=== PATIENT | female | born 1995 | race Caucasian/White ===

== ENCOUNTER 2018-04-21 02:41 | Emergency (ER) | payer OTHER ==
[~2018-04-21] VITALS: Ht 170.2 cm; Wt 90.7 kg
[~2018-04-21 02:41] MED LIST: ZOFRAN ODT4 MG PO
[2018-04-21] MEDS ORDERED: NOHOMEMEDICATIONS (02:51)
[2018-04-21 03:15] VITALS: BP 121/77
[2018-04-22] MEDS ORDERED: BACTRIM DS TAB1 EACH PO (09:44)
[2018-04-22] MEDS ORDERED: KEFLEX500 M1 PO (09:44)
[2018-04-22] MEDS ORDERED: NORCO 5-325 TA1 EACH PO (09:44)
== END 2018-04-21 03:17 | disposition home or self-care (01) ==
LOC: M.ERS 02:41
DX: R22.0 Localized swelling, mass and lump, head (principal); Z98.890 Other specified postprocedural states

== ENCOUNTER 2018-04-22 09:10 | Emergency (ER) | payer OTHER ==
[~2018-04-22] VITALS: Ht 170.2 cm; Wt 90.7 kg
[~2018-04-22 09:10] MED LIST changes: +NOHOMEMEDICATIONS
[2018-04-22] MEDS ORDERED: BACTRIM DS TAB1 EACH PO (09:44)
[2018-04-22] MEDS ORDERED: KEFLEX500 M1 PO (09:44)
[2018-04-22] MEDS ORDERED: NORCO 5-325 TA1 EACH PO (09:44)
[2018-04-22 10:05] VITALS: BP 136/88
== END 2018-04-22 10:06 | disposition home or self-care (01) ==
LOC: M.ERS 09:10
DX: K13.0 Diseases of lips (principal)

== ENCOUNTER 2020-09-09 21:35 | Emergency (ER) | payer OTHER ==
[~2020-09-09] VITALS: Ht 170.2 cm; Wt 81.7 kg
[~2020-09-09 21:35] MED LIST changes: +BACTRIM DS TAB1 EACH PO; +KEFLEX500 M1 PO; +NORCO 5-325 TA1 EACH PO
[2020-09-09 22:01] LABS: URINE BILIRUBIN NEGATIVE (Negative); URINE BLOOD 2+ (Negative); URINE CLARITY CLOUDY; URINE COLOR YELLOW; URINE GLUCOSE-RANDOM NEGATIVE (Negative); URINE KETONES NEGATIVE (Negative); URINE NITRITE-REFLEX NEGATIVE (Negative); URINE PROTEIN 1+ (Negative)
[2020-09-09 22:04] LABS: URINE LEUKOCYTES-REFLEX 2+ (Negative)
[2020-09-09 22:11] LABS: ABSOLUTE BASOPHILS 0.1 thou/uL (0.0-0.2); ABSOLUTE EOSINOPHILS 0.1 thou/uL (0.0-0.7); ABSOLUTE LYMPHOCYTES 1.2 thou/uL (0.8-5.3); ABSOLUTE MONOCYTES 0.8 thou/uL (0.0-1.2); ABSOLUTE NEUTROPHILS 10.9 thou/uL (1.6-8.1); BASOPHILS 0.4 %; EOSINOPHILS 0.7 %; HEMATOCRIT 40.3 % (37.0-47.0); HEMOGLOBIN 13.4 gm/dL (12.0-15.0); LYMPHOCYTES 9.4 %; MCHC 33.3 g/dL (28.0-37.0); MCV 84.2 fL (80.0-100.0); MONOCYTES 6.3 %; MPV 8.5 fl. (7.2-11.1); NUCLEATED RBCS 0 /100WBC; PLATELET COUNT* 213 thou/uL (150-400); POLYS 83.2 %; RBC 4.78 mil/uL (4.20-5.00); RDW-CV 13.9 % (10.5-14.5); WBC 13.1 thou/uL (4.0-11.0)
[2020-09-09 22:21] LABS: CALCIUM 8.4 mg/dL (8.5-10.1); CREATININE 0.9 mg/dL (0.6-1.3); POTASSIUM 3.4 mmol/L (3.5-5.1)
[2020-09-09 22:21] LABS: CASTS None Seen /LPF (None Seen); SQUAMOUS >10 Many /LPF (0-3)
[2020-09-09 22:22] LABS: CRYSTALS None Seen /LPF (None Seen); URINE RBC 3-10 Few /HPF (0-2); WBC CLUMPS Moderate (None Seen)
[2020-09-09] MEDS ORDERED: BACTRIM DS TAB1 EACH PO (23:30)
[2020-09-09] MEDS ORDERED: HYDROCODON-ACE1 EAC8 PO (23:30)
[2020-09-09] MEDS ORDERED: ZOFRAN ODT4 MG PO (23:30)
[2020-09-10 00:26] VITALS: BP 133/80
== END 2020-09-10 00:27 | disposition home or self-care (01) ==
LOC: M.ERS 21:35
PROVIDERS: Emergency Medicine
DX: N39.0 Urinary tract infection, site not specified (principal); Z90.89 Acquired absence of other organs

== ENCOUNTER 2020-12-23 15:32 | Emergency (ER) | payer OTHER ==
[~2020-12-23] VITALS: Ht 170.2 cm; Wt 90.7 kg
[~2020-12-23 15:32] MED LIST changes: +HYDROCODON-ACE1 EAC8 PO
[2020-12-23] MEDS ORDERED: CEPHALEXIN500 MG PO (15:58)
[2020-12-23] MEDS ORDERED: BACTRIM DS TAB1 EAC1 PO (15:58)
[2020-12-23 16:10] VITALS: BP 144/96
== END 2020-12-23 16:12 | disposition home or self-care (01) ==
LOC: M.ERS 15:32
DX: L03.115 Cellulitis of right lower limb (principal); Z90.89 Acquired absence of other organs